=== PATIENT | female | born 1955 | race Two or more races ===

== ENCOUNTER 2018-05-15 17:58 | Emergency (ER) | payer SELFPAY ==
[2018-05-15] MEDS ORDERED: TDAP ADULT 0.5 ML INJ (BOOSTRIX) IM ONE (18:10)
--- NOTE | 2018-05-15 18:10 | EDPHY ---
General Time Seen by Provider: 05/15/18 18:05 Narrative: CHIEF COMPLAINT: Thumb cut HISTORY OF PRESENT ILLNESS: Patient presents with complaints laceration left thumb. This happened within the last hour while cooking and cutting vegetables at home. This was a clean kitchen knife. She cut her left thumb on the palmar side. There was moderate bleeding, thus "I put toothpaste on it to stop the bleeding." She reports this was successful. She has no numbness, tingling or weakness. No difficulty bending the finger. She does have pain when doing so. No trauma elsewhere. Tetanus is reportedly up-to-date. No other associated complaints or modifying factors. She is currently visiting but lives here with family members for the next 2-3 months. DOMINANT EXTREMITY: Right abdominal REVIEW OF SYSTEMS: Ten systems reviewed and are negative unless otherwise noted in the HPI PAST MEDICAL HISTORY: Denies any ongoing medical diagnoses PAST SURGICAL HISTORY: No surgical history SOCIAL HISTORY: Currently visiting. Resides here for the next 2 months with family. Nonsmoker FAMILY HISTORY: Noncontributory EXAMINATION General Appearance: Alert, no distress Cardiovascular: Pulses normal throughout with symmetric radial pulses 2+. 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 2.5 cm laceration on the palmar aspect of the left thumb over the proximal phalanx. There is no tendon exposure. No pulsatile bleeding foreign body per Extremities: Tenderness of the left thumb with a laceration is. Full range of motion including abduction, adduction, opposition, flexion extension without deficit involving the left thumb. Psychiatric: Mood and affect normal MDM: 6:25 p.m. Left thumb laceration on the volar side without any evidence of tendon injury. She is neurovascular intact distally with full range of motion. I have administered a digital block to the thumb. Proceed with irrigation closure. 6:53 p.m. Simple laceration of the left thumb without tendon injury vasculature injury. Wound has been repaired with excellent approximation. She will be placed in a splint and 48 hr dressing. We discussed wound care. We discussed returning here in 7-10 days for suture removal, or sooner for signs of infection. She is comfortable this plan. I have answered all her questions. She is discharged in stable condition PROCEDURE: Digital Block Indication: Finger laceration Consent: Verbal Location: Left thumb Anesthesia: Lidocaine 1% plain, 0.25% Marcaine plain, 5mL Description: Base of the finger was prepped. The above was infused without difficulty. Tolerated well. Good anesthesia. Complications: None PROCEDURE: Laceration repair Consent: Verbal Location: Left thumb Length of repair: 2.5 cm Complexity: Complex Layer involvement: Single Anesthesia: Digital block Irrigation: Extensive Debridement: None Procedure description: Following good anesthesia, the wound was copiously irrigated. Wound bed was explored with a sterile glove, and there is no foreign body noted. No tendon or vascular injury appreciated. Wound borders were approximated well with good hemostasis. Tolerated well without complication. Suture/Staple material: 5-0 Prolene, 5 simple ruptured sutures Wound care: Routine as discussed Suture/Staple removal: 7-10 Days SUPERVISION: This patient was independently evaluated without direct involvement of or examination by the attending physician. ED Precautions: Worsening pain. Erythema, edema, cyanosis, pallor, paresthesia or anesthesia. - History Smoking Status: Never smoked - Objective Vital Signs: Initial Vital Signs Temperature (C) 97.9 F 05/15/18 17:59 Heart Rate 84 05/15/18 17:59 Respiratory Rate 16 05/15/18 17:59 Blood Pressure 142/97 H 05/15/18 17:59 O2 Sat (%) 95 05/15/18 17:59 O2 Delivery Mode Room Air Allergies/Adverse Reactions: No Known Allergies Allergy (Unverified 05/15/18 18:03) Home Medications: Medication Instructions Recorded Antibiotic For Uti 05/15/18 Medications Given: Discontinued Medications Diphtheria/Tetanus/Acell Pertussis (Boostrix) 0.5 ml IM .ONCE ONE Stop: 05/15/18 18:11 Last Admin: 05/15/18 18:18 Dose: 0.5 ml Departure - Departure Disposition: Home, Routine, Self-Care Clinical Impression: Laceration of left thumb without complication Qualifiers: Encounter type: initial encounter Qualified Code(s): S61.012A - Laceration without foreign body of left thumb without damage to nail, initial encounter Condition: Good Instructions: Care For Your Stitches (DC), Laceration (ED) Additional Instructions: 1. Daily wound care as discussed. The dressing that you have on right now may stay on for up to 48 hr but then needs to be removed 2. Keep your splint in place for 5-7 days 3. Return here in 7-10 days for suture removal 4. Return here for any redness, warmth or signs of infection as discussed Referrals: NONE *PRIMARY CARE P,. [Primary Care Provider] - As per Instructions Physician,Emergency Dept, [Medical Doctor] - As per Instructions (7-10 days for suture removal)
[2018-05-15 19:13] VITALS: BP 135/88
== END 2018-05-15 19:11 | disposition home or self-care (01) ==
PROC: 0HQGXZZ Repair Left Hand Skin, External Approach (ICD-10-PCS; principal; 2018-05-15)
DX: S61.012A Laceration without foreign body of left thumb without damage to nail, initial encounter (principal); Z23 Encounter for immunization; W26.0XXA Contact with knife, initial encounter; Y92.009 Unspecified place in unspecified non-institutional (private) residence as the place of occurrence of the external cause; Y99.8 Other external cause status; Y93.89 Activity, other specified